=== PATIENT | male | born 1985 | race Caucasian/White ===

== ENCOUNTER 2019-02-21 14:55 | Emergency (ER) | payer OTHER ==
[~2019-02-21] VITALS: Ht 170.2 cm; Wt 97.1 kg
[2019-02-21 15:08] VITALS: Ht 170.2 cm; Wt 97.1 kg
[2019-02-21] MEDS ORDERED: FAMOTIDINE 20 MG INJ IV STA (16:23)
[2019-02-21] MEDS ORDERED: SOD CHLORIDE 0.9% 1,000 ML IV STA (16:23)
[2019-02-21] MEDS ORDERED: ONDANSETRON INJ 8 MG in DEXTROSE 5% 50 ML IVPB STA (16:23)
[2019-02-21] MEDS ORDERED: ONDANSETRON 4 MG INJ ONE (16:39)
--- NOTE | 2019-02-21 17:07 | ERD ---
ER Documentation Chief Complaint Chief Complaint abdominal pain with bloody stools x5 months on/off HPI This is a 33-year-old well-appearing male who is presenting with waxing and waning epigastric and right upper quadrant abdominal pain with occasional bloody stools on and off over the last 5 months. The patient has been seen in the emergency department in the past for similar symptoms with reassuring laboratory studies and told to follow-up. He did see his primary doctor 2 months ago who referred him to a nail setter, but his gastroenterology appointment is not until April. The patient endorses occasional episodes of dark stooling, occasional episodes of bloody stooling mixed in with the stool, as well as occa sional episodes of blood streaking on formed stool. Today, the patient reports having a normal bowel movement followed by a little bit of dark diarrhea. He endorses occasional nausea but no vomiting. The patient endorses waxing and waning sharp cramping aching epigastric and right upper quadrant abdominal discomfort as well. The patient wants to have blood work and an ultrasound done to make sure that things look okay while he is waiting for his follow-up appointment. The patient denies any dysuria or hematuria or urgency or frequency. The patient does not endorse any alleviating or exacerbating factors. He does not know if it is associated with eating or not. The patient denies fever or chills. The patient has had no headache or vision changes. The patient does not endorse neck or back pain. The patient denies lightheadedness or dizziness. The patient has had no chest pain or trouble breathing. The patient has had no focal deficits. The patient has had no weakness or numbness or tingling to the face or extremities. ROS All systems reviewed and are negative except as per history of present illness. Medications Home Meds No Active Prescriptions or Reported Meds Allergies Allergies: Coded Allergies: No Known Allergy (Unverified , 02/21/19) PMhx/Soc Medical and Surgical Hx: pt denies Medical Hx, pt denies Surgical Hx History of Surgery: No Hx Neurological Disorder: No Hx Respiratory Disorders: No Hx Cardiac Disorders: No Hx Psychiatric Problems: No Hx Miscellaneous Medical Probl: No Hx Alcohol Use: No Hx Substance Use: No Hx Tobacco Use: Yes Smoking Status: Former smoker (Quit several months ago) FmHx Family History: No diabetes Physical Exam Vitals Vital Signs Date Temp Pulse Resp B/P (MAP) Pulse Ox O2 O2 Flow FiO2 Time Delivery Rate 02/21/19 75 16 130/91 100 Room Air 17:08 (104) 02/21/19 98.2 76 16 140/84 99 15:08 (102) Physical Exam Const: No acute distress. Head: Atraumatic. Eyes: Normal Conjunctiva. No conjunctival pallor. ENT: Normal External Ears, Nose and Mouth. Neck: Full range of motion. No meningismus. Resp: Clear to auscultation bilaterally. Cardio: Regular rate and rhythm, no murmurs. Abd: Soft, non distended. Mild epigastric and right upper quadrant tenderness. No guarding or rebound. Normal bowel sounds. Skin: No petechiae or rashes. No pallor. Back: No midline or flank tenderness. Ext: No cyanosis, or edema. Neur: Awake and alert. Psych: Normal Mood and Affect. Result Diagram: 02/21/19 1649 02/21/19 1649 Results 24 hrs Laboratory Tests Test 02/21/19 16:49 White Blood Count 8.0 10^3/ul Red Blood Count 5.37 10^6/ul Hemoglobin 15.1 g/dl Hematocrit 44.7 % Mean Corpuscular Volume 83.2 fl Mean Corpuscular Hemoglobin 28.1 pg Mean Corpuscular Hemoglobin Concent 33.8 g/dl Red Cell Distribution Width 12.7 % Platelet Count 334 10^3/UL Mean Platelet Volume 10.3 fl Immature Granulocytes % 0.100 % Neutrophils % 61.2 % Lymphocytes % 30.8 % Monocytes % 5.9 % Eosinophils % 1.6 % Basophils % 0.4 % Nucleated Red Blood Cells % 0.0 /100WBC Immature Granulocytes # 0.010 10^3/ul Neutrophils # 4.9 10^3/ul Lymphocytes # 2.5 10^3/ul Monocytes # 0.5 10^3/ul Eosinophils # 0.1 10^3/ul Basophils # 0.0 10^3/ul Nucleated Red Blood Cells # 0.0 10^3/ul Prothrombin Time 12.3 Sec Prothrombin Time Ratio 1.0 INR International Normalized Ratio 0.90 Sodium Level 140 mmol/L Potassium Level 4.3 mmol/L Chloride Level 103 mmol/L Carbon Dioxide Level 27 mmol/L Anion Gap 10 Blood Urea Nitrogen 10 mg/dl Creatinine 1.13 mg/dl Est Glomerular Filtrat Rate mL/min > 60 mL/min Glucose Level 91 mg/dl Calcium Level 10.1 mg/dl Total Bilirubin 0.5 mg/dl Direct Bilirubin 0.00 mg/dl Indirect Bilirubin 0.5 mg/dl Aspartate Amino Transf (AST/SGOT) 21 IU/L Alanine Aminotransferase (ALT/SGPT) 34 IU/L Alkaline Phosphatase 72 IU/L Troponin I < 0.012 ng/ml Total Protein 8.4 g/dl Albumin 4.8 g/dl Globulin 3.60 g/dl Albumin/Globulin Ratio 1.33 Current Medications Medications Dose Sig/Roldan Start Time Status Last (Trade) Ordered Route PRN Stop Time Admin Dose Reason Admin Sodium 1,000 ml @ Q1H STAT 02/21/19 DC 02/21/19 Chloride 1,000 mls/hr IV 16:23 17:05 02/21/19 17:22 Famotidine 20 mg ONCE STAT 02/21/19 DC 02/21/19 (Pepcid Iv) IV 16:23 17:05 02/21/19 16:25 Ondansetron 54 ml @ ONCE STAT 02/21/19 DC HCl 8 200 mls/hr IVPB 16:23 mg/Dextrose 02/21/19 16:39 Ondansetron 4 mg STK-MED 02/21/19 DC HCl (Zofran ONCE .ROUTE 16:39 Inj) 02/21/19 16:40 Procedures/MDM MDM The patient's presentation warrants further investigation. Previous medical records, if available, were reviewed. LABS The patient's laboratory testing was obtained and reviewed. No emergent treatment was required unless described below. CBC: No E/o systemic infection or severe anemia or thrombocytopenia Chemistry: No E/o severe acidosis or alkalosis or renal failure or liver disease or diabetic ketoacidosis PT/INR: No E/o significant coagulopathy EKG EKG read by me: Rate/Rhythm: Regular rate and rhythm at a rate of 80 bpm Intervals: Normal [place]: Normal Impression: Q waves in the inferior leads indicating potential old ischemia. No ST or T wave changes concerning for acute ischemia or arrhythmia IMAGING Imaging and Radiology interpretation reviewed. CXR FINDINGS: The lungs are clear. No focal opacification is seen. The cardiomediastinal silhouette is unremarkable. The osseous structures are un remarkable. IMPRESSION: No acute cardiopulmonary process. Electronically viewed and signed by Ruddy Fuchs MD, on 02/21/2019 18:42 Ultrasound gallbladder FINDINGS: The liver is normal in echogenicity and measures 15.1 cm. No focal hepatic masses are seen. The gallbladder is physiologically distended. There is no evidence of gallstones, gallbladder wall thickening, or pericholecystic fluid. The intra and extrahepatic bile ducts are normal in caliber. The common bile duct measures 3.4 mm. Pancreas is not visualized due to overlying bowel gas. Survey views of the right kidney demonstrate no evidence of hydronephrosis or renal calculi. The right kidney measures 10.9 cm. IMPRESSION: Unremarkable right upper quadrant ultrasound. No evidence of cholelithiasis or acute cholecystitis.. Electronically viewed and signed by Rufus Hairston MD, on 02/21/2019 18:47 TREATMENT/DISPOSITION The patient presents with concerns of a waxing and waning GI bleed over the last several months. There is no evidence of symptomatic anemia at this time. I have low suspicion for emergent bleeding. I do feel the patient may benefit from outpatient work-up with a nail setter. I recommended that he call the nail setter to see if he can move up his appointment. The patient does have epigastric tenderness. Gastritis versus PUD versus GERD are certainly possibilities. The patient's BUN is unremarkable, but an upper GI bleed is certainly a possibility as the patient does endorse intermittent episodes of dark stooling. The patient was treated with IV fluids, Pepcid and Zofran in the emergency department. The patient will be given prescriptions for Pepcid and Zofran to help with symptom control in an outpatient setting. The patient does not have any evidence of peritonitis. The patient does not have clinical symptoms concerning for mesenteric ischemia or ischemic colitis. I have low suspicion for viscus perforation. The patient does have right upper quadrant tenderness. An ultrasound was completed that was unremarkable. I have low suspicion for gallstones, cholecystitis or biliary colic. The patient does not have left upper quadrant tenderness. I have low suspicion for pancreatitis. The patient does not have any right lower quadrant tenderness, or periumbilical tenderness. I have low suspicion for appendicitis. The patient does not have suprapubic tenderness. I have decreased suspicion for cystitis. The patient does not have any left lower quadrant tenderness, and I have low suspicion for diverticulosis or diverticulitis. The patient does not have any flank tenderness. The patient does not have gross hematuria. I have decreased suspicion for nephrolithiasis or renal colic. The patient does not have any palpable pulsatile mass or severe abdominal pain radiating to the back. I have low suspicion for aortic aneurysm, dissection or rupture. DISCHARGE Upon reevaluation of the patient, symptoms have improved. No emergent diagnoses were identified. At this time, I feel that the patient stable for discharge. The patient was instructed to follow-up with a primary care physician in 1-3 days. The patient will be given strict precautions with which to return to the emergency department. Prescriptions: Pepcid, Zofran The patient's blood pressure was elevated at greater than 120/80 while in the emergency department. The patient was otherwise stable with no evidence of hypertensive urgency or emergency. The patient does not require admission for blood pressure control. I have discussed with the patient the risks of hypertension. I have instructed the patient to return to the ER for any new or worsening symptoms including chest pain, shortness of breath, headache, blurred vision, confusion, nausea, vomiting or LOC. I have advised the patient to follow up with the primary care physician for outpatient monitoring and treatment for hypertension in 1-3 days. Disclaimer: Inadvertent spelling and grammatical errors are likely due to EHR/dictation software use and do not reflect on the overall quality of patient care. Note that the electronic time recorded on this note does not necessarily reflect the actual time of the patient encounter. Departure Diagnosis: Primary Impression: GI bleed GI bleed type/associated pathology: unspecified gastrointestinal hemorrhage type Qualified Codes: K92.2 - Gastrointestinal hemorrhage, unspecified Additional Impressions: Abdominal pain Abdominal location: right upper quadrant Qualified Codes: R10.11 - Right upper quadrant pain Nausea Diarrhea Diarrhea type: unspecified type Qualified Codes: R19.7 - Diarrhea, unspecified Condition: Stable Patient Instructions: When You Have Gastrointestinal (GI) Bleeding, Abdominal Pain, Nausea Additional Instructions: Thank you for for coming to [facility] for your care today. Please ask your nurse or provider if you have questions about your care today and do not leave until all your questions have been answered. Please use any medications given as directed and follow-up with your doctor (or the doctor you were referred to) in the next 1-3 days. If you do not have a primary care doctor you may follow up at the [facility] or [facility] (listed below). You may also use motrin and tylenol as needed for fever and/or pain unless instructed otherwise by your provider or nurse. Indications for more urgent follow-up have been discussed, but you may return to the Emergency Department at ANY time for any worrisome or worsening symptoms. If you have abdominal pain, please know that no test or exam you received is perfect and you should follow up within 8 hours for continued pain. If you had any imaging studies today, such as an X-Ray or CT Scan, these studies will be reviewed later by a radiologist. You will be called if there are important findings that were not identified today, so make sure the contact information you provided at registration is correct. If you received any narcotic pain control medicine today, such as Vicodin, Morphine or Dilaudid, your coordination and judgment may be affected for a number of hours. Please do not drive or operate heavy machinery, and you may wa nt someone to assist you at home. If you were given a prescription for narcotic medication, be aware that it is very addictive- use sparingly and only if necessary. PLEASE SEEK FURTHER EVALUATION AND MANAGEMENT AT YOUR DOCTORS OFFICE WITHIN THE NEXT 1-3 DAYS. IT IS YOUR RESPONSIBILITY TO MAKE AN APPOINTMENT FOR FOLOW-UP CARE. IF YOU HAVE A PRIMARY DOCTOR, PLEASE CALL THEIR OFFICE TO SCHEDULE AN APPOINTMENT FOR FOLLOW UP. IF YOU DO NOT HAVE A PRIMARY DOCTOR YOU CAN CALL OUR PHYSICIAN REFERRAL HOTLINE AT IF YOU CAN NOT AFFORD TO SEE A PHYSICIAN YOU CAN CHOSE FROM THE FOLLOWING [facility] CLINICS: [facility] [address] [facility] [address] [facility] [address] [facility] [address] [facility] [address] [facility]. [facility]. [address] LYNNETTE ERIC MD Feb 21, 2019 17:04
[2019-02-21] MEDS ORDERED: ONDA8TAB9 PO (19:41)
[2019-02-21] MEDS ORDERED: FAMO-96 PO (19:41)
[2019-02-21 19:57] VITALS: BP 141/99; PULSE 93; RESP 16
== END 2019-02-21 19:59 | disposition home or self-care (01) ==
LOC: E/R 14:55
DX: K92.2 Gastrointestinal hemorrhage, unspecified (principal); R19.7 Diarrhea, unspecified; R11.0 Nausea; Z87.891 Personal history of nicotine dependence
CPT/HCPCS: 36415; 71045; 76705; 80053; 84484; 85025; 85610; 86850; 86900; 86901; 96361; 96374; J2405; J7030; Z7502; Z7610